=== PATIENT | female | born 1930 | race Caucasian/White ===

== ENCOUNTER 2019-07-31 11:30 | Outpatient (CLI) | payer MEDICARE, OTHER ==
[~2019-07-31 11:30] MED LIST: ALBU6.7H9 INH; ALLO100T PO; ASPI-529 PO; CARV-50 PO; FURO80TA87 PO; LOSA25TA96 PO; POTA20TA19 PO; PROP15DR28 EACHEYE
[2019-07-31 12:03] LABS: HEMATOCRIT 32.9 % (35.0-45.0); HEMOGLOBIN 11.1 g/dl (12.0-16.0); MEAN CORPUSCULAR HEMOGLOBIN 33.9 PG (27.0-31.0); MEAN CORPUSCULAR HGB CONC 33.8 g/dL (33.0-36.5); MEAN CORPUSCULAR VOLUME 100.1 FL (78-98); MEAN PLATELET VOLUME 9.8 FL (7.4-10.4); PLATELET COUNT 112 X10'3 (140-440); RED BLOOD COUNT 3.29 X10'6 (4.20-5.60); RED CELL DISTRIBUTION WIDTH 14.5 % (11.5-14.5); WHITE BLOOD COUNT 6.9 X10'3 (4.5-11.0)
[2019-07-31 12:09] LABS: ALBUMIN 3.2 G/DL (3.4-5.0); ANION GAP 5 (8-16); BLOOD UREA NITROGEN 76 MG/DL (7-18); BUN/CREATININE RATIO 25.6 (6.6-38.0); CALCIUM 10.3 MG/DL (8.5-10.1); CHLORIDE 100 MMOL/L (99-107); CREATININE 2.97 MG/DL (0.40-0.90); GLUCOSE 107 MG/DL (70-104); POTASSIUM 4.6 MMOL/L (3.5-5.1); SODIUM 134 MMOL/L (135-145); eGFR 15 ML/MIN
[2019-07-31 12:11] LABS: PARTIAL THROMBOPLASTIN TIME 27 SECONDS (22-32)
[2019-07-31 12:31] LABS: TOTAL CELLS COUNTED 100
[2019-07-31 12:32] LABS: ANISOCYTOSIS FEW; PLATELET ESTIMATE DECREASED; STOMATOCYTES 2+
== END 2019-07-31 23:59 | disposition home or self-care (01) ==
LOC: SSTAY O 11:30 → EDSTATUS 08-05 17:00
PROVIDERS: ATTEND Internal Medicine Interventional Cardiology
DX: I10 Essential (primary) hypertension (principal); R06.02 Shortness of breath
CPT/HCPCS: 36415; 80048; 85025; 85610; 85730

== ENCOUNTER 2019-09-12 11:11 | Emergency (ER) | payer MEDICARE, OTHER ==
[~2019-09-12] VITALS: Ht 172.7 cm; Wt 97.3 kg
[2019-09-12] MEDS ORDERED: OXYGEN NASALCANN (11:40)
[2019-09-12] MEDS ORDERED: morphine 4 MG/ML inj SYRINge IM ONE (12:00)
--- NOTE | 2019-09-12 13:19 | NUR ---
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 CELL [phone]
[2019-09-12 14:58] VITALS: BP 115/60
[2019-09-14] MEDS ORDERED: LOSA100T57 (12:39)
[2019-09-14] MEDS ORDERED: LACT10SO (12:39)
[2019-09-14] MEDS ORDERED: CARV6.253 (12:39)
[2019-09-14] MEDS ORDERED: DICL100G30 (12:39)
[2019-09-14] MEDS ORDERED: FURO40TA4 (12:39)
[2019-09-14] MEDS ORDERED: LOVA40TA2 (12:39)
[2019-09-14] MEDS ORDERED: ASPI-1265 PO (15:38)
[2019-09-14] MEDS ORDERED: COLC0.6T69 PO (15:38)
[2019-09-14] MEDS ORDERED: ALLO100T PO (15:38)
[2019-09-14] MEDS ORDERED: LOSA25TA96 PO (15:38)
[2019-09-14] MEDS ORDERED: PROP1DRO7 OP (15:38)
[2019-09-14] MEDS ORDERED: MULT-955 PO (15:38)
[2019-09-14] MEDS ORDERED: OMEG1CAP13 PO (15:38)
[2019-09-14] MEDS ORDERED: LYSI100013 PO (15:38)
[2019-09-14] MEDS ORDERED: ACET-2144 PO (15:38)
[2019-09-14] MEDS ORDERED: CARV-50 PO (15:38)
[2019-09-15] MEDS ORDERED: LACT10SO PO (11:00)
== END 2019-09-12 14:59 | disposition home or self-care (01) ==
LOC: ER 11:11
DX: M41.9 Scoliosis, unspecified (principal); M54.2 Cervicalgia; M25.512 Pain in left shoulder; M25.511 Pain in right shoulder; I10 Essential (primary) hypertension; J45.909 Unspecified asthma, uncomplicated; M19.90 Unspecified osteoarthritis, unspecified site; Z98.890 Other specified postprocedural states; Z91.09 Other allergy status, other than to drugs and biological substances; Z88.2 Allergy status to sulfonamides; Z88.8 Allergy status to other drugs, medicaments and biological substances; Z79.82 Long term (current) use of aspirin; Z79.899 Other long term (current) drug therapy; W18.39XA Other fall on same level, initial encounter; Y93.89 Activity, other specified; Y92.89 Other specified places as the place of occurrence of the external cause; Y99.8 Other external cause status
CPT/HCPCS: 70450; 72070; 72100; 72125; 72170; 73564; 96372; 99284; J2270